=== PATIENT | male | born 1985 | race Caucasian/White ===

== ENCOUNTER 2017-09-27 11:04 | Outpatient (CLI) | payer BC ==
--- NOTE | 2017-09-27 12:59 | CT ---
CT OF THE ABDOMEN WITHOUT AND WITH CONTRAST: COMPARISON: None. HISTORY: Left upper abdominal pain and nausea. Evaluate for pancreatitis. TECHNIQUE: Multiple contiguous axial images were obtained in a CT of the abdomen only without and with IV contra st. Postcontrast images were obtained in the arterial and portal venous phases. FINDINGS: The liver, gallbladder, kidneys, adrenal glands, spleen, and pancreas are unremarkable. No free air, free fluid, or stranding changes are seen in the abdomen. The visualized large and small bowel are unremarkable. No gastric abnormality is appreciated. No ab dominal adenopathy is seen. The visualized inferior thorax and abdominal wall soft tissues were unremarkable. The bones are unre markable. IMPRESSION: No evidence of acute intraabdominal abnormality. POS: [facility]
== END 2017-09-27 11:05 | disposition home or self-care (01) ==
LOC: CT 11:04
PROVIDERS: ATTEND Family Medicine
DX: K85.90 Acute pancreatitis without necrosis or infection, unspecified (principal)
CPT/HCPCS: 74170

== ENCOUNTER 2020-02-22 15:17 | Emergency (ER) | payer BC, SELFPAY | END 2020-02-22 16:22 | disposition home or self-care (01) | LOC: ERS 15:17 | DX: M71.9 Bursopathy, unspecified (principal); I10 Essential (primary) hypertension; Z79.899 Other long term (current) drug therapy | CPT/HCPCS: 99283 ==